=== PATIENT | male | born 1970 | race Caucasian/White ===

== ENCOUNTER 2023-07-11 03:23 | Outpatient (CLI) | payer BC, OTHER | END 2023-07-11 23:59 | disposition critical access hospital (66) | LOC: EMS 03:23 | DX: R07.9 Chest pain, unspecified (principal); R11.2 Nausea with vomiting, unspecified | CPT/HCPCS: A0425; A0427 ==

== ENCOUNTER 2023-07-11 03:33 | Emergency (ER) | payer BC, OTHER ==
[2023-07-11] MEDS ORDERED: MORPHINE 2 MG/ML CARPUJECT IVP STA (03:39)
[2023-07-11] MEDS ORDERED: SODIUM CHLORIDE 0.9% 1,000 ML IV STA ×2 (03:39→09:15)
[2023-07-11] MEDS ORDERED: ONDANSETRON 4 MG/2 ML VIAL IVP STA (03:47)
--- NOTE | 2023-07-11 03:47 | ED Physician Documentation ---
History of Present Illness - Stated complaint Stated Complaint: CHEST PX - History obtained from History obtained from: Patient - Additonal information Additional information: 52yM with pmh dm, nonsmoker, without strong family cardiac history, p/w R lower chest pain radiating to the back since 11pm last night with associated nausea and vomiting. states he had a similar episode 2 weeks ago with [facility] CCT[facility] and ultrasound of the gallbladder. He states they thought it was likely kidney stone but never found one on imaging. patient denies abd pain, urinary sx. denies soa, cough, fever. PD PAST MEDICAL HISTORY - Present Medications Home Medications: Ambulatory Orders Medication Instructions Recorded Confirmed Metformin HCl [Metformin ER 500 mg PO BID 07/11/23 07/11/23 Osmotic] - Allergies Allergies/Adverse Reactions: Allergies Allergy/AdvReac Type Severity Reaction Status Date / Time No Known Drug Allergies Allergy Verified 07/11/23 03:42 PD ED PE NORMAL - Vitals Vital signs reviewed: Yes - General General: Alert and oriented X 3, No acute distress, Well developed/nourished - HEENT HEENT: Atraumatic, PERRL, EOMI, Moist mucous membranes, Pharynx benign - Neck Neck: Supple, no meningeal sign - Cardiac Cardiac: RRR - Respiratory Respiratory: No respiratory distress, Clear bilaterally - Abdomen Abdomen: Non tender, Non distended, Other (RUQ tender to palpation. +gaspar sign) - Derm Derm: Normal color, Warm and dry - Extremities Extremities: No deformity Results - Vitals Vitals: Vital Signs - 24 hr 07/11/23 07/11/23 07/11/23 03:31 03:34 03:44 Temperature 36.5 C Heart Rate 65 65 Respiratory 20 15 Rate Blood Pressure 177/107 H 177/108 H Blood Pressure 171/111 H [Left] Blood Pressure 177/108 H [Right] O2 Saturation 99 100 If not protocol : Oxygen Flow, liters/minute 07/11/23 07/11/23 07/11/23 04:07 04:29 04:39 Temperature Heart Rate 58 L 58 L 65 Respiratory 16 18 14 Rate Blood Pressure 188/118 H 178/111 H 176/109 H Blood Pressure [Left] Blood Pressure [Right] O2 Saturation 100 96 99 If not protocol : Oxygen Flow, liters/minute 07/11/23 07/11/23 07/11/23 05:27 05:31 05:42 Temperature Heart Rate 60 62 Respiratory 15 15 Rate Blood Pressure 178/100 H 176/101 H Blood Pressure [Left] Blood Pressure [Right] O2 Saturation 92 96 88 L If not protocol 2 2 : Oxygen Flow, liters/minute 07/11/23 07/11/23 07/11/23 05:43 05:46 05:53 Temperature 36.0 C L Heart Rate 64 Respiratory 12 Rate Blood Pressure 163/100 H Blood Pressure [Left] Blood Pressure [Right] O2 Saturation 88 L 98 97 If not protocol 3 4 4 : Oxygen Flow, liters/minute 07/11/23 06:51 Temperature Heart Rate 103 H Respiratory 15 Rate Blood Pressure 171/101 H Blood Pressure [Left] Blood Pressure [Right] O2 Saturation 95 If not protocol : Oxygen Flow, liters/minute Oxygen O2 Source Room air Oxygen Flow Rate 2 - EKG (time done) 0352 EKG releavant findings:: EKG personally interpreted by author of this note. Relevant findings are: Rate: Rate (enter#) (64) Rhythm: NSR [place]: Normal Intervals: Normal AL, LBBB 0418 EKG releavant findings:: EKG personally interpreted by author of this note. Relevant findings are: Rate: Rate (enter#) (58) Rhythm: NSR Intervals: Normal AL, LBBB QRS: Normal Ischemia: Normal ST segments - Labs Labs: Laboratory Tests 07/11/23 07/11/23 07/11/23 03:46 03:46 05:40 WBC 7.2 RBC 4.94 Hgb 16.6 Hct 46.5 MCV 94.1 H MCH 33.6 H MCHC 35.7 RDW 11.3 L Plt Count 228 MPV 9.5 Neut # (Auto) 4.9 Lymph # (Auto) 1.2 L [place] # (Auto) 0.8 Eos # (Auto) 0.2 Baso # (Auto) 0.1 Absolute Nucleated RBC 0.00 Nucleated RBC % 0.0 Sodium 132 L Potassium 3.9 Chloride 95 L Carbon Dioxide 28 Anion Gap 9.0 BUN 9 Creatinine 0.8 Estimated GFR (MDRD) 102 Glucose 199 H Calcium 9.8 Total Bilirubin 1.7 H AST 53 H ALT 72 H Alkaline Phosphatase 91 Troponin I High Sens 8.1 7.8 Total Protein 7.1 Albumin 4.6 Globulin 2.5 Albumin/Globulin Ratio 1.8 Lipase 37 Ethyl Alcohol < 10.0 PD Medical Decision Making - ED course ED course: 52yM presents to the ED with R chest pain and RUQ pain radiating to the back, similar to prior episode 2 weeks ago with extensive workup at [facility]. plan to obtain records. cbc, abdominal panel, trop, ekg, cxr ordered. 6mg IV morphine ordered with improvement in pain. zofran given for nausea. Tbili 1.7 concerning for gallbladder pathology. Patient also has sodium 132. labwork otherwise benign. cts showed small pericardial effusion and ascending thoracic aortic aneurysm. d/w patient need for cards f/u. Also ordered GB u/s. plan to endorse to incoming daytime ED MD at 7am shift change pending u/s. Departure - Departure Clinical Impression: Chest pain, Nausea and vomiting, Pericardial effusion, Thoracic aortic aneurysm, Hyperbilirubinemia Condition: Stable Instructions: Understanding Pericardial Effusion Follow-Up: Dione Ramirez MD [Physician No Access] - Comments: You were seen in the emergency department for evaluation of right upper abdominal pain and R lower chest pain. Your labwork is showing increased bilirubin which may be related to gallbladder issues or alcohol use. Your CTs showed fluid around your heart (pericardial effusion) and a small thoracic aortic aneurysm of 4.2 cm diameter. You should see a sales support consultant to follow up these findings. Please follow-up with your primary care provider and return to the emergency department if you have any new or worsening symptoms or other concerns. Forms: PCP List
[2023-07-11] MEDS ORDERED: ASPIRIN 325 MG TABLET PO STA (03:55)
[2023-07-11 03:58] LABS: BASOPHILS # (AUTO) 0.1 10^3/uL (0.0-0.1); EOSINOPHILS # (AUTO) 0.2 10^3/uL (0.0-0.7); EOSINOPHILS % (AUTO) 2.4 %; HCT - HEMATOCRIT 46.5 % (42.0-52.0); HGB - HEMOGLOBIN 16.6 g/dL (14.0-18.0); LYMPHOCYTES # (AUTO) 1.2 10^3/uL (1.5-3.5); LYMPHOCYTES % (AUTO) 16.5 %; MEAN CORPUSCULAR HEMOGLOBIN 33.6 pg (27.0-31.0); MEAN CORPUSCULAR HGB CONC 35.7 g/dL (32.0-36.0); MEAN CORPUSCULAR VOLUME 94.1 fL (80.0-94.0); MEAN PLATELET VOLUME 9.5 fL (7.4-11.4); MONOCYTES # (AUTO) 0.8 10^3/uL (0.0-1.0); MONOCYTES % (AUTO) 11.4 %; NEUTROPHILS # (AUTO) 4.9 10^3/uL (1.5-6.6); NEUTROPHILS % (AUTO) 68.3 %; PLT - PLATELET COUNT 228 10^3/uL (130-450); RED BLOOD COUNT 4.94 10^6/uL (4.70-6.10); RED CELL DISTRIBUTION WIDTH 11.3 % (12.0-15.0); WHITE BLOOD COUNT 7.2 x10^3/uL (4.8-10.8)
[2023-07-11 04:08] LABS: ALBUMIN 4.6 g/dL (3.2-5.5); ALBUMIN/GLOBULIN RATIO 1.8 (1.0-2.2); ALKALINE PHOSPHATASE 91 IU/L (42-121); ALT ALANINE AMINOTRANSFERASE 72 IU/L (10-60); AST ASPARTATE AMINOTRANSFERASE 53 IU/L (10-42); BILIRUBIN,TOTAL 1.7 mg/dL (0.2-1.0); BUN - BLOOD UREA NITROGEN 9 mg/dL (6-20); CALCIUM 9.8 mg/dL (8.5-10.3); CARBON DIOXIDE - CO2 28 mmol/L (21-32); CHLORIDE 95 mmol/L (101-111); CREATININE 0.8 mg/dL (0.6-1.3); ETOH - ETHANOL < 10.0 mg/dL; GFR - MDRD 102 (>89); GLUCOSE 199 mg/dL (74-104); LIPASE 37 U/L (11-82); POTASSIUM 3.9 mmol/L (3.5-4.5); SODIUM 132 mmol/L (135-145); TOTAL PROTEIN 7.1 g/dL (6.4-8.9)
[2023-07-11] MEDS ORDERED: HYDROmorphone 1 MG/ML CARPUJECT IVP STA ×3 (04:08→09:15)
[2023-07-11 04:12] LABS: TROPONIN I HIGH SENSITIVITY 8.1 ng/L (2.3-19.7)
[2023-07-11] MEDS ORDERED: iohexoL-300 100 ML VIAL IVP ONE (05:40)
--- NOTE | 2023-07-11 08:13 | XRAY Report ---
PROCEDURE: Chest 1 View X-Ray INDICATIONS: Chest Pain TECHNIQUE: One view of the chest was acquired. COMPARISON: None. FINDINGS: Surgical changes and devices: None. Lungs and pleura: No pleural effusions or pneumothorax. Lungs are clear. Mediastinum: Mediastinal contours appear normal. Heart size is normal. Bones and chest wall: No suspicious bony lesions. Overlying soft tissues appear unremarkable. IMPRESSION: No acute cardiopulmonary process. Findings are concordant with preliminary interpretation provided by [facility]. Reviewed by: Chavo Mcarthur MD on 07/11/2023 8:11 AM PDT Approved by: Chavo Mcarthur MD on 07/11/2023 8:11 AM PDT Station ID: [id number]
--- NOTE | 2023-07-11 08:58 | CT Report ---
PROCEDURE: ANGIO ABDOMEN/PELVIS W INDICATIONS: RUQ pain, R chest pain CONTRAST: Omni 300 100ml TECHNIQUE: After the administration of intravenous contrast, 2.5 mm thick sections acquired from the diaphragm t o the symphysis. 10 mm maximum-intensity projection (MIP) reformats were then acquired. For radiati on dose reduction, the following was used: automated exposure control, adjustment of mA and/or kV ac cording to patient size. COMPARISON: CT angiogram of the chest from the same date FINDINGS: Image quality: Excellent. Aorta: Widely patent without aneurysm or dissection Mesenteric arteries: Celiac trunk, superior and inferior mesenteric arteries appear patent. Right pelvic arteries: Widely patent Left pelvic arteries: Widely patent Extravascular soft tissues: Lung bases are clear. Heart size is normal. Moderate diffuse hepatic st eatosis without focal mass. Mild splenomegaly. Spleen measures 13.6 cm. Gallbladder is unremarkable w ithout calcified gallstones.. Biliary system is non dilated. Pancreas enhances normally. No adrena l nodules. Kidneys are normal in size and enhancement, without hydronephrosis. Non opacified bowel loops are normal in wall thickness and caliber. No free fluid or air. No retroperitoneal or mesente mary ann adenopathy. No ventral hernias. No suspicious bony lesions. No vertebral body compression frac tures. IMPRESSION: 1. Moderate diffuse hepatic steatosis. 2. Mild splenomegaly. 3. Otherwise unremarkable CTA abdomen and pelvis. No abdominal aortic aneurysm. Above discussed with Eder Ramos MD at the time of dictation. Reviewed by: Pratik Hathaway MD on 07/11/2023 8:57 AM PDT Approved by: Pratik Hathaway MD on 07/11/2023 8:57 AM PDT Station ID: [id number]
--- NOTE | 2023-07-11 09:03 | CT Report ---
PROCEDURE: ANGIO CHEST W/WO INDICATIONS: chest pain CONTRAST: Omni 300 100ml TECHNIQUE: After the administration of intravenous contrast, 2 mm axial images were acquired from the pulmonary apices to the posterior costophrenic angles during the arterial phase. In addition, 1 mm lung kernel and 5 mm soft tissue kernel reconstructions were performed. 3-dimensional coronal oblique maximum int ensity projection (MIP) reformats, 8 mm axial MIP, and 5 mm coronal and sagittal MPR reformats were t hen performed through the thorax. For radiation dose reduction, the following was used: automated exp osure control, adjustment of mA and/or kV according to patient size. COMPARISON: None. FINDINGS: Image quality: Excellent. Large vessels: There is mild ascending thoracic aortic ectasia. No filling defects within the opacifi ed pulmonary arteries, accounting for motion and contrast timing. Lungs and pleura: Dependent atelectasis at lung bases. No consolidation. No pleural effusions. No pn eumothorax. No suspicious pulmonary nodules which require follow up. Mediastinum: Heart size is normal. No pericardial effusion. No large vessel abnormality. No mediastin al adenopathy by size criteria. No hiatal hernia. No concentric thickening in the distal esophagus. Chest wall and lower neck: Thyroid is unremarkable. No axillary or supraclavicular adenopathy by size . Bones: No aggressive osseous abnormality. Upper Abdomen: Hepatic steatosis. IMPRESSION: 1. Mild thoracic aortic ectasia. No aortic dissection. 2. No definitive pulmonary embolus. 3. Mild concentric thickening of the distal esophagus, probably secondary to technical esophageal ref lux. Consider esophagram or EGD for follow-up. Findings are concordant with preliminary interpretation provided by [facility]. Reviewed by: Chavo Mcarthur MD on 07/11/2023 9:02 AM PDT Approved by: Chavo Mcarthur MD on 07/11/2023 9:02 AM PDT Station ID: [id number]
[2023-07-11] MEDS ORDERED: KETOROLAC 15 MG/ML VIAL IVP STA (09:15)
--- NOTE | 2023-07-11 09:20 | Ultrasound Report ---
PROCEDURE: Abdomen Limited INDICATIONS: RUQ pain TECHNIQUE: Real-time focused scanning was performed of the abdomen, with image documentation. COMPARISONS: CTA abdomen 07/11/2023. FINDINGS: Liver: Liver is normal in size and diffusely increased in echogenicity. Gallbladder: No gallstones are seen. There is mild gallbladder wall thickening to 4 mm and trace marjorie cholecystic fluid. Sonographic Silva sign is positive. Biliary ducts: Intrahepatic bile ducts are non-dilated. Extrahepatic bile duct caliber measures 5 m m. Normal is 6-7 mm or less in diameter, or 10 mm or less post-cholecystectomy. Pancreas: Visualized portions of the pancreas are sonographically normal. Right kidney: Normal in size and echotexture. Right kidney measures 11.9 cm long. No hydronephrosis or nephrolithiasis. No solid masses. No complex renal cystic lesions which require follow-up. Aorta: Visualized aorta is normal in caliber at less than 3 cm. IVC: Intrahepatic inferior vena cava is patent. Miscellaneous: No free abdominal fluid. IMPRESSION: 1.Mild gallbladder wall thickening and trace pericholecystic fluid was reportedly positive sonographi c Silva's sign. No gallstones. Findings are nonspecific but clinical correlation is recommended to e xclude a calculus cholecystitis. 2.Diffusely increased hepatic echogenicity is nonspecific, but most commonly encountered in the setti ng of hepatic steatosis. However, other causes of hepatocellular disease are not excluded. Recommend clinical correlation. Reviewed by: King Liu MD on 07/11/2023 9:19 AM PDT Approved by: King Liu MD on 07/11/2023 9:19 AM PDT Station ID: [id number]
--- NOTE | 2023-07-11 13:33 | MRI Report ---
PROCEDURE: MRCP WO INDICATIONS: RUQ abd pain, US cystic duct enlarged, perichol fl CONTRAST: None. TECHNIQUE: Coronal ultra fast SE through the abdomen, axial 2-D spoiled GE in- and [id number], and breath-hold T2 FSE with fat saturation through the biliary system and pancreas. Oblique coronal and axial thin- slice ultra fast SE, radial thick-slab ultra fast SE centered on the extrahepatic bile ducts. COMPARISON: Ultrasound 07/11/2023 and CTA abdomen/pelvis 07/11/2023 FINDINGS: Image quality: Excellent. Gallbladder: Gallbladder wall thickening and trace pericholecystic fluid are seen. No gallstone ident ified. Borderline dilated appearance of the gallbladder. Biliary tree: No intrahepatic or extrahepatic ductal dilatation. Pancreas: No pancreatic ductal dilation. Lung bases and heart: Unremarkable. Liver: There is diffusely decreased attenuation throughout the liver on out of phase T1-weighted imag es, consistent with diffuse fatty infiltration. Spleen: Mildly enlarged.. Adrenals: No adrenal nodule. Kidneys and ureters: No hydronephrosis. No renal cystic lesion which requires follow up. No solid mas s. Bowel and peritoneum: No bowel distension. Small amount of pericholecystic fluid and trace perihepati c fluid. Lymph nodes: No central or retroperitoneal adenopathy. Vessels: No infrarenal aortic aneurysm. Bones: No aggressive osseous abnormality. Other: Fat-containing periumbilical hernia. IMPRESSION: 1.Borderline dilated gallbladder with wall thickening and a small amount of pericholecystic fluid. No gallstones or obstructing mass. No biliary ductal dilatation. Findings are of uncertain significance and acalculus cholecystitis is not excluded. Nuclear medicine HIDA scan could be performed if indica mar clinically. 2.Diffuse hepatic steatosis. 3.Mild splenomegaly. Reviewed by: King Liu MD on 07/11/2023 1:31 PM PDT Approved by: King Liu MD on 07/11/2023 1:31 PM PDT Station ID: [id number]
[2023-07-11 13:46] VITALS: O2SAT 96
--- NOTE | 2023-07-11 14:28 | ED Physician Documentation ---
ED Addendum - Addendum Addendum: 07/11/23 14:24 The patient was seen on change of shift. He had gotten some pain medicines recently. He was still having some right upper quadrant pain. Ultrasound had been ordered and as soon as they came in in the morning they attended to the patient with the bedside ultrasound. This showed some thickening of the gallbladder wall and some mild pericholecystic fluid. There was some dilation of the cystic duct. The pancreatic duct and common bile duct could not be seen well from patient habitus. It appeared likely normal. Given some dilation of the cystic duct and poor visualization according to the budget technician of the common bile duct but no apparent blockages, I felt it was appropriate to really ascertain if there was any, bile duct blockage. MRCP was ordered. The patient did have to wait a couple of hours for this which is still pretty darn good. During that time he was given a repeat dose of Dilaudid pain medicine and some IV fluids and Toradol 15 mg IV. He subsequently had considerable relief of his abdominal pain and essentially resolution of it after about an hour. He did have the MRCP which showed some thickening of the gallbladder wall and some pericholecystic fluid. The common bile duct was normal and no obstructions were seen. I talked again with the patient who is now pain-free and her recheck of this abdomen does not have any tenderness. However does sound fairly clearly a gallbladder origin of the pain episode today and like presumably 2 weeks ago when he had the other episode. He is from [place] and [place] visiting his [place]. He would follow-up with surgery there. I recommend he follow-up with the surgeon in the near future and have his primary care refer him to 1 in the next week or so. Meanwhile avoid fatty foods and I will prescribe some ondansetron, dicyclomine, oxycodone to help with pain episodes if he gets recurrent 1. Consideration would be follow-up with surgery for potential cholecystectomy given to good episodes of biliary colic with this 1 associated with early cholecystitis visually on imaging. Disposition: The patient is discharged in stable condition. Diagnoses: 1. Right upper quadrant abdominal pain 2. Right lower chest pain 3. Acute mild cholecystitis, a calculus
[2023-07-11 14:54] VITALS: BP 136/94
== END 2023-07-11 14:49 | disposition home or self-care (01) ==
LOC: ED 03:33
DX: I31.39 Other pericardial effusion (noninflammatory) (principal); I71.20 Thoracic aortic aneurysm, without rupture, unspecified; E80.6 Other disorders of bilirubin metabolism; K81.0 Acute cholecystitis; R07.89 Other chest pain; R11.2 Nausea with vomiting, unspecified; E11.9 Type 2 diabetes mellitus without complications; Z79.84 Long term (current) use of oral hypoglycemic drugs
CPT/HCPCS: 36415; 71045; 71275; 74174; 74181; 76705; 80053; 80320; 83690; 84484; 85025; 93005; 96374; 96375; 96376; 99284; 99285; A9270; J1170; Q9967